=== PATIENT | female | born 1990 | race Caucasian/White ===

== ENCOUNTER 2016-05-10 21:09 | Emergency (ER) | payer SELFPAY ==
--- NOTE | 2016-05-10 21:15 | ER Document Report ---
ED Medical Screen (RME) - General Stated Complaint: CHEST PAIN Notes: Left-sided chest pain with 2 near-syncopal episodes since 8 PM. I greeted and performed a rapid initial assessment of this patient. Comprehensive ED assessment and evaluation of the patient, analysis of test results and completion of the medical decision making process will be conducted by additional ED providers. - Related Data Allergies/Adverse Reactions: No Known Allergies Allergy (Unverified 04/25/11 09:06) Past Medical History - Immunizations Hx Diphtheria, Pertussis, Tetanus Vaccination: No
[2016-05-10 21:22] VITALS: BP 124/83
--- NOTE | 2016-05-10 22:53 | EKG REPORT ---
SEVERITY:- BORDERLINE ECG - SINUS RHYTHM INFERIOR Q WAVES, PROBABLY NORMAL VARIATION : Confirmed by: Nadine Ferrera MD 10-May-2016 22:52:28
--- NOTE | 2016-05-10 23:51 | ER Document Report ---
ED Cardiac - General Chief Complaint: Chest Pain Stated Complaint: CHEST PAIN Time seen by provider: 23:49 Mode of Arrival: Medic Information source: Patient TRAVEL OUTSIDE OF THE [place] IN LAST 30 DAYS: No - HPI Patient complains to provider of: Chest pain, Chest tightness, Shortness of breath Was the onset of pain: Sudden Is the pain a: New problem Chest pain location: Pleuritic Quality of pain: Moderate, Tightness Severity now: Mild Severity at worst: Moderate Pain level currently: 1 Chest pain precipitating factors: Mental Exertion/Stress Cardiac risk factors: Smoker Positive cardiac history: No Associated symptoms: Shortness of breath, Syncope Exacerbated by: Denies Relieved by: Nothing Similar symptoms previously: Yes - approximately one month ago similar episode Recently seen / treated by doctor: No Notes: Patient is a 25-year-old female who presents to the emergency room complaining of chest pain with a syncopal episode that occurred just prior to arrival, states she was standing at the refrigerator when she felt a sharp stabbing chest pain, shortness of breath, and woke up on the floor, she had a second episode a few minutes later, where she collapsed to the ground but did not lose consciousness, she reports a sensation of chest tightness and shortness of breath, she is a smoker, has a history of a similar episode approximately one month ago but she did not seek out medical care for this, no recent traveling, no surgery, she does not take oral control, denies a chance of being - Related Data Allergies/Adverse Reactions: No Known Allergies Allergy (Unverified 04/25/11 09:06) Past Medical History - General Information source: Patient - Social History Smoking Status: Current Every Day Smoker Chew tobacco use (# tins/day): No Frequency of alcohol use: Occasional Drug Abuse: Marijuana Family History: Reviewed & Not Pertinent Patient has suicidal ideation: No Patient has homicidal ideation: No Renal/ Medical History: Denies: Hx Peritoneal Dialysis - Immunizations Hx Diphtheria, Pertussis, Tetanus Vaccination: No Review of Systems - Review of Systems Constitutional: No symptoms reported EENT: No symptoms reported Cardiovascular: See HPI Respiratory: See HPI Gastrointestinal: No symptoms reported Genitourinary: No symptoms reported Female Genitourinary: No symptoms reported Musculoskeletal: No symptoms reported Skin: No symptoms reported Hematologic/Lymphatic: No symptoms reported Neurological/Psychological: No symptoms reported -: Yes All other systems reviewed and negative Physical Exam - Vital signs Vitals: Temp Pulse Resp BP Pulse Ox 98.6 F 92 16 124/83 99 05/10/16 21:20 05/10/16 21:20 05/10/16 21:20 05/10/16 21:20 05/10/16 21:20 Interpretation: Normal - General General appearance: Appears well, Alert - HEENT Head: Normocephalic, Atraumatic Eyes: Normal Pupils: PERRL - Respiratory Respiratory status: No respiratory distress Chest status: Nontender Breath sounds: Normal Chest palpation: Normal - Cardiovascular Rhythm: Regular Heart sounds: Normal auscultation Murmur: No - Abdominal Inspection: Normal Distension: No distension Bowel sounds: Normal Tenderness: Nontender Organomegaly: No organomegaly - Back Back: Normal, Nontender - Extremities General upper extremity: Normal inspection, Nontender, Normal color, Normal ROM , Normal temperature General lower extremity: Normal inspection, Nontender, Normal color, Normal ROM , Normal temperature, Normal weight bearing. No: Natasha's sign - Neurological Neuro grossly intact: Yes Cognition: Normal Orientation: AAOx4 Emmanuel Coma Scale Eye Opening: Spontaneous Emmanuel Coma Scale Verbal: Oriented [place] Coma Scale Motor: Obeys Commands [place] Coma Scale Total: 15 Speech: Normal Motor strength normal: LUE, RUE, LLE, RLE Sensory: Normal - Psychological Associated symptoms: Normal affect, Tearful - Skin Skin Temperature: Warm Skin Moisture: Dry Skin Color: Normal Course - Re-evaluation Re-evalutation: 05/11/16 01:03 Patient's evaluation in the emergency room unremarkable, she is tearful on exam and admits to feeling stressed and anxious, symptoms likely related to anxiety, she was discharged with information for follow-up and advised to return if symptoms worsen, patient acknowledges understanding and agreement with this plan - Vital Signs Vital signs: Temp Pulse Resp BP Pulse Ox 98.6 F 92 16 124/83 99 05/10/16 21:20 05/10/16 21:20 05/10/16 21:20 05/10/16 21:20 05/10/16 21:20 - Laboratory Result Diagrams: 05/10/16 21:30 05/10/16 21:30 Laboratory results interpreted by me: 05/10/16 21:30 Carbon Dioxide 31 H Calcium 11.1 H Total Protein 8.8 H - Diagnostic Test Radiology reviewed: Image reviewed, Reports reviewed - EKG Interpretation by Me EKG shows normal: Sinus rhythm Rate: Normal Rhythm: NSR Additional EKG results interpreted by me: 05/10/16 23:51 Patient has evidence of inferior Q waves, otherwise normal sinus rhythm at a rate of 89, she does have flattened/slightly inverted T waves in lead 3 as well , no previous EKG to compare to Discharge - Discharge Clinical Impression: Chest pain Qualifiers: Chest pain type: unspecified Qualified Code(s): R07.9 - Chest pain, unspecified Condition: Stable Disposition: HOME, SELF-CARE Instructions: Chest Pain of Unclear Cause ([facility]), Anxiety ([facility]) Additional Instructions: Follow up with your primary care provider and a mental health professional in one to 2 days. Return to the emergency room immediately if symptoms worsen or any additional concerns. Forms: Smoking Cessation Education
[2016-05-10 23:55] LABS: ABSOLUTE EOSINOPHILS # (AUTO) 0.1 10^3/uL (0.0-0.6); ABSOLUTE LYMPHOCYTES (AUTO) 2.8 10^3/uL (0.5-4.7); ABSOLUTE MONOCYTES (AUTO) 0.7 10^3/uL (0.1-1.4); ABSOLUTE NEUT (AUTO) 4.8 10^3/uL (1.7-8.2); BASOPHILS % (AUTO) 0.6 % (0-2); EOSINOPHILS % (AUTO) 0.9 % (0-6); HEMATOCRIT 43.3 % (36.0-47.0); HEMOGLOBIN 14.3 g/dL (12.0-15.5); HGB HCT DIFFERENCE -0.4; LYMPHOCYTES % (AUTO) 33.5 % (13-45); MEAN CORPUSCULAR HEMOGLOBIN 29.1 pg (27.0-33.4); MEAN CORPUSCULAR VOLUME 88 fl (80-97); MONOCYTES % (AUTO) 7.9 % (3-13); RED BLOOD COUNT 4.91 10^6/uL (3.72-5.28); RED CELL DISTRIBUTION WIDTH 13.6 % (11.5-14.0); SEGMENTED NEUTROPHILS % (AUTO) 57.1 % (42-78); WHITE BLOOD COUNT 8.4 10^3/uL (4.0-10.5)
[2016-05-11 00:06] LABS: ALANINE AMINOTRANSFERASE 14 U/L (9-52); ALKALINE PHOSPHATASE 60 U/L (38-126); ANION GAP 14 (5-19); ASPARTATE AMINO TRANSFERASE 20 U/L (14-36); BILIRUBIN,TOTAL 0.9 mg/dL (0.2-1.3); BLOOD UREA NITROGEN 19 mg/dL (7-20); CALCIUM 11.1 mg/dL (8.4-10.2); CARBON DIOXIDE 31 mmol/L (22-30); CHLORIDE 98 mmol/L (98-107); CREATINE KINASE 69 U/L (30-135); CREATININE RESULT 0.84 mg/dL (0.52-1.25); GLUCOSE 88 mg/dL (75-110); POTASSIUM 4.3 mmol/L (3.6-5.0); SODIUM 143.3 mmol/L (137-145); TOTAL PROTEIN 8.8 g/dL (6.3-8.2)
== END 2016-05-11 01:20 | disposition home or self-care (01) ==
LOC: ER 21:09
DX: R07.9 Chest pain, unspecified (principal); R06.02 Shortness of breath; R55 Syncope and collapse; F17.200 Nicotine dependence, unspecified, uncomplicated
CPT/HCPCS: 36415; 71020; 71275; 80053; 82550; 82553; 82962; 84484; 84703; 85025; 93005; 93010; 99285

== ENCOUNTER 2016-12-05 11:57 | Observation (INO) | payer SELFPAY ==
--- NOTE | 2016-12-05 12:14 | ER Document Report ---
ED Oral Problem - General Chief Complaint: Toothache Stated Complaint: MOUTH PAIN/SWELLING Time Seen by Provider: 12/05/16 12:05 TRAVEL OUTSIDE OF THE [place] IN LAST 30 DAYS: No - Related Data Allergies/Adverse Reactions: No Known Allergies Allergy (Verified 12/05/16 12:03) Past Medical History - Social History Family History: Reviewed & Not Pertinent Pulmonary Medical History: Reports: Hx Asthma - childhood Renal/ Medical History: Denies: Hx Peritoneal Dialysis - Immunizations Hx Diphtheria, Pertussis, Tetanus Vaccination: No Physical Exam - Vital signs Vitals: Temp Pulse Resp BP Pulse Ox 100.3 F 100 22 H 129/78 H 100 12/05/16 12:03 12/05/16 12:03 12/05/16 12:03 12/05/16 12:03 12/05/16 12:03 Course - Vital Signs Vital signs: Temp Pulse Resp BP Pulse Ox 100.3 F 100 22 H 129/78 H 100 12/05/16 12:03 12/05/16 12:03 12/05/16 12:03 12/05/16 12:03 12/05/16 12:03
--- NOTE | 2016-12-05 12:28 | ER Document Report ---
ED Medical Screen (RME) - General Chief Complaint: Toothache Stated Complaint: MOUTH PAIN/SWELLING Time Seen by Provider: 12/05/16 12:05 Notes: Patient is a 18-year-old female presents emergency department complaining of chin swelling and pain that started on Wednesday. Patient states that it started as a pimple and her mom tried to pop it so she poked it with a needle. Patient states that since then it has been swelling in size and has not been draining. She also admits to pain on the inside of her gums but denies any drainage or foul odor. She states that her speech does feel muffled because she feels well and also admits to jaw pain pain with motion as well as pain into her neck as well. Patient states that she does have a history of cellulitis. Otherwise healthy female. TRAVEL OUTSIDE OF THE [place] IN LAST 30 DAYS: No - Related Data Allergies/Adverse Reactions: No Known Allergies Allergy (Verified 12/05/16 12:03) Past Medical History - Social History Chew tobacco use (# tins/day): No Frequency of alcohol use: Rare Drug Abuse: None Pulmonary Medical History: Reports: Hx Asthma - childhood Renal/ Medical History: Denies: Hx Peritoneal Dialysis Surgical Hx: Negative - Immunizations Hx Diphtheria, Pertussis, Tetanus Vaccination: No Review of Systems - Review of Systems Constitutional: No symptoms reported EENT: See HPI Cardiovascular: No symptoms reported Respiratory: No symptoms reported Skin: See HPI -: Yes All other systems reviewed and negative Physical Exam - Vital signs Vitals: Temp Pulse Resp BP Pulse Ox 100.3 F 100 22 H 129/78 H 100 12/05/16 12:03 12/05/16 12:03 12/05/16 12:03 12/05/16 12:03 12/05/16 12:03 - HEENT Mouth/Lips: Other - left lower jaw tenderness and swelling. No: Caries, Dental fracture Mucous membranes: Normal Pharynx: Other - speech midly muffled but patient has difficulty opening her jaw 2/2 pain. No: Peritonsillar abscess, Retropharyngeal abscess Neck: Other - soft tissue swelling and pain extening along the left jaw and into her neck with tenderness - Skin Skin irregularity: Abscess - cellulitis and abscess on her chin with tenderness , pocket commuicating within the interior of her lip with ourulent srainage and tenderness Location of irregularity: Face Course - Vital Signs Vital signs: Temp Pulse Resp BP Pulse Ox 100.3 F 100 22 H 129/78 H 100 12/05/16 12:03 12/05/16 12:03 12/05/16 12:03 12/05/16 12:03 12/05/16 12:03
[2016-12-05] MEDS ORDERED: CLINDAMYCIN 600 MG/D5W RTU 600 MG/50 ML RTUPB IV ONE (12:31)
--- NOTE | 2016-12-05 12:31 | ER Document Report ---
ED General - General Mode of Arrival: Medic Information source: Patient TRAVEL OUTSIDE OF THE [place] IN LAST 30 DAYS: No - HPI Associated symptoms: Other - see above <MANUELA CORONA - Last Filed: 12/05/16 12:38> <SAL CHERRY - Last Filed: 12/06/16 13:19> - General Chief Complaint: Toothache Stated Complaint: MOUTH PAIN/SWELLING Time Seen by Provider: 12/05/16 12:05 Notes: Patient is a 26 year old female who presents to the ED with complaints of an infected pimple on her chin with onset morning. Patient states her mother popped it and some white pus came out. Patient states she woke up this morning with entire face and neck swelling. Patient had a fever of 101 last night and this morning a temp of 100. Patient has no medical problems, is not on any daily medications and does not have a PCP. Patient states she does have some dental pain secondary to wisdom teeth coming in but denies a sore throat. (MANUELA CORONA) - Related Data Allergies/Adverse Reactions: No Known Allergies Allergy (Verified 12/05/16 12:03) Home Medications: Current Home Medications No Home Medications 12/05/16 [History] Past Medical History - General Information source: Patient - Social History Smoking Status: Current Every Day Smoker Chew tobacco use (# tins/day): No Frequency of alcohol use: Rare Drug Abuse: None Family History: Reviewed & Not Pertinent Pulmonary Medical History: Reports: Hx Asthma - childhood Renal/ Medical History: Denies: Hx Peritoneal Dialysis Surgical Hx: Negative - Immunizations Hx Diphtheria, Pertussis, Tetanus Vaccination: No <MANUELA CORONA - Last Filed: 12/05/16 12:38> Review of Systems - Review of Systems Constitutional: See HPI, Fever EENT: See HPI, Dental problem, Other - chin pain and swelling into neck. denies : Throat pain Cardiovascular: No symptoms reported Respiratory: No symptoms reported Gastrointestinal: No symptoms reported Genitourinary: No symptoms reported Female Genitourinary: No symptoms reported Musculoskeletal: No symptoms reported Skin: No symptoms reported Hematologic/Lymphatic: No symptoms reported Neurological/Psychological: No symptoms reported <MANUELA CORONA - Last Filed: 12/05/16 12:38> Physical Exam - General General appearance: Alert - HEENT Head: Normocephalic, Other - area on chin which appears to be a secondarily infected pimple with active erythema and swelling in the jaw down into the anterior left aspect of the neck. Eyes: Normal Pupils: PERRL Mouth/Lips: Other - no tongue swelling, no Ant's angina signs or swelling under the tongue, no trismus or drooling Pharynx: Normal. No: Uvular edema Neck: Normal, Other - no palpable masses in neck. No: Neck mass - Respiratory Respiratory status: No respiratory distress - Cardiovascular Rhythm: Regular - Abdominal Distension: No distension - Back Back: Normal - Extremities General upper extremity: Normal inspection, Normal strength General lower extremity: Normal inspection, Normal strength - Neurological Neuro grossly intact: Yes - Psychological Associated symptoms: Normal affect, Normal mood - Skin Skin Temperature: Warm Skin Moisture: Dry Skin Color: Normal Skin irregularity: other - see HEENT exam <MANUELA CORONA - Last Filed: 12/05/16 12:38> - Vital signs Vitals: Temp Pulse Resp BP Pulse Ox 100.3 F 100 22 H 129/78 H 100 12/05/16 12:03 12/05/16 12:03 12/05/16 12:03 12/05/16 12:03 12/05/16 12:03 Course - Laboratory Result Diagrams: 12/05/16 12:20 12/05/16 12:20 <MANUELA CORONA - Last Filed: 12/05/16 12:38> - Laboratory Result Diagrams: 12/05/16 12:20 12/05/16 12:20 <SAL CHERRY - Last Filed: 12/06/16 13:19> - Re-evaluation Re-evalutation: 12/05/16 15:16 Patient presents emergency department chief complaint of facial swelling. About 3-4 days ago patient had what appeared to be a pimple she poked it rather her mom poked it got white pus out of it. He then apparently stuck a needle in it. Today she woke up it was significantly swollen at her chin into her anterior neck without associated trismus stridor or drooling no respiratory distress she is febrile but not toxic CT scan did not show an abscess. Treated with IV antibiotics went to admit her observation according to Dr. ivey observation on the medical floor. (SAL CHERRY) - Vital Signs Vital signs: Temp Pulse Resp BP Pulse Ox 98.6 F 71 16 109/55 L 100 12/06/16 11:19 12/06/16 11:19 12/06/16 11:19 12/06/16 11:19 12/06/16 11:19 - Laboratory Laboratory results interpreted by me: 12/05/16 12/05/16 12:20 12:20 Seg Neutrophils % 78.6 H Lymphocytes % 12.4 L Glucose 143 H Direct Bilirubin 0.5 H Discharge <MANUELA CORONA - Last Filed: 12/05/16 12:38> - Discharge Admitting Provider: Hospitalist Unit Admitted: Medical Floor <SAL CHERRY - Last Filed: 12/06/16 13:19> - Discharge Clinical Impression: Facial cellulitis Condition: Stable Disposition: ADMITTED OBSERVATION Scribe Attestation: 12/05/16 15:16 I personally performed the services described in the documentation reviewed the documentation recorded by my scribe in my presence and it accurately and completely records my words and actions (SAL CHERRY) Scribe Documentation - Scribe Written by [place]:: xavier Mohr, 12/05/2016, 1238 acting as scribe for :: Terrance <MANUELA CORONA - Last Filed: 12/05/16 12:38>
[2016-12-05] MEDS ORDERED: TETANUS/DIPHTHERIA TOX-ADULT 0.5 ML SYR (>=7YO) IM ONE ×2 (12:33→13:00)
[2016-12-05] MEDS ORDERED: FENTANYL CITRATE INJ/PF 100 MCG/2 ML AMPUL IV ONE (12:34)
[2016-12-05 12:49] LABS: ABSOLUTE LYMPHOCYTES (AUTO) 1.3 10^3/uL (0.5-4.7); ABSOLUTE MONOCYTES (AUTO) 0.8 10^3/uL (0.1-1.4); ABSOLUTE NEUT (AUTO) 8.2 10^3/uL (1.7-8.2); BASOPHILS % (AUTO) 0.3 % (0-2); EOSINOPHILS % (AUTO) 0.5 % (0-6); HEMATOCRIT 38.4 % (36.0-47.0); HEMOGLOBIN 13.2 g/dL (12.0-15.5); HGB HCT DIFFERENCE 1.2; LYMPHOCYTES % (AUTO) 12.4 % (13-45); MEAN CORPUSCULAR HGB CONC 34.3 g/dL (32.0-36.0); MEAN CORPUSCULAR VOLUME 90 fl (80-97); MONOCYTES % (AUTO) 8.2 % (3-13); RED BLOOD COUNT 4.24 10^6/uL (3.72-5.28); RED CELL DISTRIBUTION WIDTH 13.4 % (11.5-14.0); SEGMENTED NEUTROPHILS % (AUTO) 78.6 % (42-78); WHITE BLOOD COUNT 10.4 10^3/uL (4.0-10.5)
[2016-12-05 13:05] LABS: ALANINE AMINOTRANSFERASE 26 U/L (9-52); ALKALINE PHOSPHATASE 74 U/L (38-126); ANION GAP 14 (5-19); ASPARTATE AMINO TRANSFERASE 16 U/L (14-36); BLOOD UREA NITROGEN 7 mg/dL (7-20); CALCIUM 9.9 mg/dL (8.4-10.2); CARBON DIOXIDE 25 mmol/L (22-30); CHLORIDE 98 mmol/L (98-107); CREATININE RESULT 0.65 mg/dL (0.52-1.25); GLUCOSE 143 mg/dL (75-110); POTASSIUM 4.1 mmol/L (3.6-5.0); SODIUM 137.1 mmol/L (137-145)
[2016-12-05 13:06] LABS: BILIRUBIN,DIRECT 0.5 mg/dL (0.0-0.4); TOTAL PROTEIN 7.6 g/dL (6.3-8.2)
--- NOTE | 2016-12-05 14:34 | RADIOLOGY REPORT (SQ) ---
EXAM DESCRIPTION: CT SOFT TISSUE NECK WITH COMPLETED DATE/TIME: 12/05/2016 1:59 pm REASON FOR STUDY: abscess jaw COMPARISON: None. TECHNIQUE: Post IV contrasted scanning from skull base through lung apices with review of bone, soft tissue and lung windows. Reconstructed coronal and sagittal MPR images reviewed. All images stored on PACS. All CT scanners at this facility use dose modulation, iterative reconstruction, and/or weight based d osing when appropriate to reduce radiation dose to as low as reasonably achievable (ALARA). [facility]: Dose Right [facility]: CareDose [facility]: Dose Right [facility]: Teradose 4D [facility]: Ocean Seed CONTRAST TYPE AND DOSE: contrast/concentration: Isovue 370.00 mg/ml; Total Contrast Delivered: 75.0 ml; Total Saline Delivered: 55.0 ml RENAL FUNCTION: GFR > 60. RADIATION DOSE: Up-to-date CT equipment and radiation dose reduction techniques were employed. CTDIv ol: 12.7 mGy. DLP: 362 mGy-cm. . LIMITATIONS: None. FINDINGS: SKULL BASE: Intact. MAJOR SALIVARY GLANDS: No solid or cystic masses. No inflammatory changes. LYMPHADENOPATHY: Enlarged left submandibular nodes, maximum 1.5 cm in diameter. MUCOSAL MASSES OR ASYMMETRY: No mucosal masses or asymmetry. LARYNX/CORDS: No abnormal findings. VASCULAR STRUCTURES: The major vessels are patent. LUNG APICES: Clear. BONES: Intact. THYROID: Normal size. No masses. PARANASAL SINUSES: Clear. OTHER: Stranding of the fat in the subcutaneous tissues of the submandibular space. No organized flu id collection. IMPRESSION: Cellulitis. Submandibular adenopathy. No abscess. TECHNICAL DOCUMENTATION: JOB ID: [id number] Quality ID # [id number]: Final reports with documentation of one or more dose reduction techniques (e.g., Au tomated exposure control, adjustment of the mA and/or kV according to patient size, use of iterative reconstruction technique) 2010 [employer]- All Rights Reserved
[2016-12-05] MEDS ORDERED: ONDANSETRON HCL INJ/PF 4 MG/2 ML SDV IV PRN (15:22)
[2016-12-05] MEDS: NORMAL SALINE 1000 ML 1,000 ML IV PRN (16:00)
--- NOTE | 2016-12-05 16:25 | PDOC H&P ---
History of Present Illness Admission Date/PCP: No PCP Patient complains of: Pain in the chin History of Present Illness: RJ ALAS is a 26 year old female sending after 3-4 history of having a pimple on the face which her mom squeezed. Patient says after he squeezed it became more tender and red and then she noticed swelling in her chin under her chin and it has been very painful to her. Patient states she has not been able to eat. Patient states that she has been having fevers and chills at home. Patient states she has never had anything like this before. In the ED patient underwent a soft tissue CT scan which showed cellulitis and submandibular adenopathy no abscess. Patient was given a dose of clindamycin and fentanyl for pain. Hospitalist service was called to bring patient in for observation and antibiotics and pain management. Past Medical History Cardiac Medical History: Reports: None Pulmonary Medical History: Reports: Asthma - childhood Social History Smoking Status: Current Every Day Smoker Drugs: None - Advance Directive Resuscitation Status: Full Code Family History Family History: None, Reviewed & Not Pertinent Parental Family History Reviewed: Yes Children Family History Reviewed: Yes Sibling(s) Family History Reviewed.: Yes Medication/Allergy Home Medications: No Home Medications 12/05/16 Allergies/Adverse Reactions: No Known Allergies Allergy (Verified 12/05/16 12:03) Physical Exam Vital Signs: Temp Pulse Resp BP Pulse Ox 99.9 F 88 16 137/81 H 100 12/05/16 15:29 12/05/16 15:29 12/05/16 15:29 12/05/16 15:29 12/05/16 15:29 Intake & Output 12/04/16 12/05/16 12/06/16 06:59 06:59 06:59 Weight 75.3 kg General appearance: PRESENT: mild distress Head exam: PRESENT: normocephalic Eye exam: PRESENT: EOMI Teeth exam: PRESENT: other - Braces Neck exam: PRESENT: lymphadenopathy Respiratory exam: PRESENT: clear to auscultation kaylee Cardiovascular exam: PRESENT: RRR GI/Abdominal exam: PRESENT: normal bowel sounds, soft Rectal exam: PRESENT: deferred Extremities exam: PRESENT: full ROM Musculoskeletal exam: PRESENT: ambulatory Neurological exam: PRESENT: alert, awake, oriented to place, oriented to time Psychiatric exam: PRESENT: normal mood Skin exam: PRESENT: other - Erythema of the chin with induration and tenderness to palpation there is a punctum with some drainage. Results Laboratory Results: 12/05/16 12:20 12/05/16 12:20 12/05/16 12/05/16 12:20 12:20 WBC 10.4 RBC 4.24 Hgb 13.2 Hct 38.4 MCV 90 MCH 31.0 MCHC 34.3 RDW 13.4 Plt Count 155 Seg Neutrophils % 78.6 H Lymphocytes % 12.4 L Monocytes % 8.2 Eosinophils % 0.5 Basophils % 0.3 Absolute Neutrophils 8.2 Absolute Lymphocytes 1.3 Absolute Monocytes 0.8 Absolute Eosinophils 0.0 Absolute Basophils 0.0 Sodium 137.1 Potassium 4.1 Chloride 98 Carbon Dioxide 25 Anion Gap 14 BUN 7 Creatinine 0.65 Est GFR ( Amer) > 60 Est GFR (Non-Af Amer) > 60 Glucose 143 H Calcium 9.9 Total Bilirubin 1.0 AST 16 ALT 26 Alkaline Phosphatase 74 Total Protein 7.6 Albumin 4.0 Impressions: Soft Tissue Neck CT 12/05/16 12:12 IMPRESSION: Cellulitis. Submandibular adenopathy. No abscess. Assessment & Plan - Diagnosis (1) Facial cellulitis Is this a current diagnosis for this admission?: Yes Plan: Patient being brought in for observation. Continue clindamycin 900 mg IV q. 8 for facial cellulitis. Will do MRSA swab. Toradol as needed for pain as well as Tylenol. Will start a liquid diet as patient states it hurts to chew. Will monitor for fever. Will monitor for improvement. Note that CT scan was done which was negative for abscess but did show cellulitis and adenopathy. (2) Tobacco abuse Plan: Will place nicotine patch and counseled patient on smoking cessation - Time Time Spent: 30 to 50 Minutes Smoking Cessation Education: 3 to 10 minutes Medications reviewed and adjusted accordingly: Yes Anticipated discharge: Home Within: within 48 hours
[2016-12-05] MEDS: KETOROLAC TROMETHAMINE INJ/PF 30 MG/1 ML SDV IV PRN (16:48)
[2016-12-05] MEDS ORDERED: NICOTINE 21 MG/24 HR PATCH.TD24 TD PRN (19:59)
[2016-12-05] MEDS: CLINDAMYCIN 900 MG/D5W RTU 50 ML IV SCH (21:18)
[2016-12-06] MEDS: KETOROLAC TROMETHAMINE INJ/PF 30 MG/1 ML SDV IV PRN ×2 (00:38→08:46)
[2016-12-06] MEDS: NORMAL SALINE 1000 ML 1,000 ML IV PRN ×2 (02:11→14:10)
[2016-12-06] MEDS: CLINDAMYCIN 900 MG/D5W RTU 50 ML IV SCH ×2 (05:59→14:10)
[2016-12-06] MEDS ORDERED: LACTOBACILLUS ACIDOPHILUS 250 MG TAB PO SCH (10:00)
--- NOTE | 2016-12-06 10:38 | PDOC PROGRESS REPORT ---
Subjective Progress Note for:: 12/06/16 Subjective:: Lying in bed states that she is more comfortable. Patient states that her face does not hurt as much as she is still having difficulty chewing because of the pain. Encourage patient to wash her face with soap and water and to place warm compress on the chin. Physical Exam Vital Signs: Temp Pulse Resp BP Pulse Ox 98.5 F 72 16 118/65 100 12/06/16 07:39 12/06/16 07:39 12/06/16 07:39 12/06/16 07:39 12/06/16 07:39 Intake & Output 12/05/16 12/06/16 12/07/16 06:59 06:59 06:59 Intake Total 1725 Balance 1725 Weight 74.7 kg General appearance: PRESENT: no acute distress Eye exam: PRESENT: EOMI Mouth exam: PRESENT: moist Neck exam: PRESENT: full ROM Respiratory exam: PRESENT: clear to auscultation kaylee Cardiovascular exam: PRESENT: RRR GI/Abdominal exam: PRESENT: normal bowel sounds, soft Rectal exam: PRESENT: deferred Extremities exam: PRESENT: full ROM Musculoskeletal exam: PRESENT: full ROM Neurological exam: PRESENT: alert, awake, CN II-XII grossly intact Psychiatric exam: PRESENT: normal mood Skin exam: PRESENT: other - Erythema of the chin improved drainage coming from the punctum. It has softened up. Results Impressions: Soft Tissue Neck CT 12/05/16 12:12 IMPRESSION: Cellulitis. Submandibular adenopathy. No abscess. Assessment & Plan - Diagnosis (1) Facial cellulitis Is this a current diagnosis for this admission?: Yes Plan: Continue clindamycin 900 mg IV q. 8 for facial cellulitis. Wound culture is consistent with possible MRSA as is growing gram-positive cocci in clusters. We will continue Toradol as it is helping with the pain and swelling as needed for pain as well as Tylenol. Will start a liquid diet as patient states it hurts to chew. She has been afebrile. Will monitor for improvement. Note that CT scan was done which was negative for abscess but did show cellulitis and adenopathy. Start patient on probiotic while she is on the high dose of clindamycin. Encourage patient to wash face with soap and water and use warm compresses to the area as much as possible. (2) Tobacco abuse Is this a current diagnosis for this admission?: Yes Plan: Continue nicotine patch and counseled patient on smoking cessation - Time Time Spent with patient: Less than 15 minutes Anticipated discharge: Home Within: within 24 hours
[2016-12-06 16:35] VITALS: BP 106/60
--- NOTE | 2016-12-06 17:17 | PDOC DISCHARGE SUMMARY ---
General - Admit/Disc Date/PCP Admission Date/Primary Care Provider: 12/05/16 15:23 Discharge Date: 12/06/16 - Discharge Diagnosis (1) Facial cellulitis Is this a current diagnosis for this admission?: Yes Summary: Patient had cellulitis of the chin after she burst a pimple on her face. Patient was given clindamycin and show significant improvement. Patient was only here under observation and has for several doses of clindamycin. Patient wound culture of her chin is growing what seems to be MRSA patient is asking if she can go home. She was also given Toradol as needed for her pain. Warm compress was applied to the face and patient was asked to keep her face clean. (2) Tobacco abuse Is this a current diagnosis for this admission?: Yes Summary: She was given a nicotine patch and counseled on smoking cessation - Additional Information Resuscitation Status: Full Code Discharge Diet: As Tolerated Discharge Activity: Activity As Tolerated Home Medications: Clindamycin HCl 300 mg PO Q6 10 Days #40 capsule 12/06/16 Ibuprofen [Motrin 800 mg Tablet] 800 mg PO Q8H PRN #30 tab 12/06/16 History of Present Illness History of Present Illness: RJ ALAS is a 26 year old female sending after 3-4 history of having a pimple on the face which her mom squeezed. Patient says after he squeezed it became more tender and red and then she noticed swelling in her chin under her chin and it has been very painful to her. Patient states she has not been able to eat. Patient states that she has been having fevers and chills at home. Patient states she has never had anything like this before. In the ED patient underwent a soft tissue CT scan which showed cellulitis and submandibular adenopathy no abscess. Patient was given a dose of clindamycin and fentanyl for pain. Hospitalist service was called to bring patient in for observation and antibiotics and pain management. Hospital Course Hospital Course: Patient was brought in under observation status. Patient was given a dose of clindamycin while in the ED and received several more doses while she was in the hospital. Patient face did show significant improvement along with the tenderness. There is still erythema and there was some drainage coming from the face. Patient wound cultures growing gram-positive cocci in clusters which is most consistent with MRSA. Patient should have adequate adequate coverage with clindamycin however this is not patient will be contacted and antibiotic will be changed. Patient was receiving Toradol for pain which she stated helped. Patient was asked to keep place face clean with soap and water and to apply warm compress to the chin area. Patient was asked to no longer squeeze the chin. She does have a tobacco use history. Patient had a continue patch placed and was counseled on smoking cessation. Physical Exam Vital Signs: Temp Pulse Resp BP Pulse Ox 98.6 F 71 16 109/55 L 100 12/06/16 11:19 12/06/16 11:19 12/06/16 11:19 12/06/16 11:19 12/06/16 11:19 Intake & Output 12/05/16 12/06/16 12/07/16 06:59 06:59 06:59 Intake Total 1725 Balance 1725 Weight 74.7 kg General appearance: PRESENT: no acute distress Head exam: PRESENT: normocephalic Eye exam: PRESENT: EOMI Mouth exam: PRESENT: moist Neck exam: PRESENT: full ROM Respiratory exam: PRESENT: clear to auscultation kaylee Cardiovascular exam: PRESENT: RRR GI/Abdominal exam: PRESENT: normal bowel sounds, soft Rectal exam: PRESENT: deferred Extremities exam: PRESENT: full ROM Musculoskeletal exam: PRESENT: full ROM Neurological exam: PRESENT: CN II-XII grossly intact Psychiatric exam: PRESENT: normal mood Skin exam: PRESENT: other - Erythema of the chin significantly improve. The chin area is no longer firm. Is a punctum with purulent drainage. Results Impressions: Soft Tissue Neck CT 12/05/16 12:12 IMPRESSION: Cellulitis. Submandibular adenopathy. No abscess. Qualifiers PATEINT BEING DISCHARGED WITH ANY OF THE FOLLOWING DIAGNOSIS?: No VTE patient discharged on overlapping Therapy?: No Plan Discharge Plan: Patient is being discharged on clindamycin 300 mg every 6 hours for 10 days facial cellulitis. Patient is also being discharged on Motrin 800 mg 3 times daily as needed for pain quantity 30. Patient advised to keep her face clean and to apply warm compress to her chin and allow the area to drain. Patient should follow-up at the free clinic within a week. Patient does not have a PCP. Time Spent: Less than 30 Minutes
== END 2016-12-06 16:46 | disposition home or self-care (01) ==
LOC: ER 11:57 → EH 15:23 → UNDOADMOB 15:33 → 2N 16:37
PROC: 3E0234Z Introduction of Serum, Toxoid and Vaccine into Muscle, Percutaneous Approach (ICD-10-PCS; principal; 2016-12-05)
PROC: HZ31ZZZ Individual Counseling for Substance Abuse Treatment, Behavioral (ICD-10-PCS; 2016-12-05)
DX: L03.211 Cellulitis of face (principal); B96.89 Other specified bacterial agents as the cause of diseases classified elsewhere; R59.0 Localized enlarged lymph nodes; F17.200 Nicotine dependence, unspecified, uncomplicated; K08.89 Other specified disorders of teeth and supporting structures
CPT/HCPCS: 99285; 90471; 96375; 96365; 36415; 87040; 87070; 87205; 84702; 85025; 87075; 87077; 80053; 87186; 70491; 90714; 99406; G0378 ×3; J3010; J1885 ×2; J7030 ×2

== ENCOUNTER 2018-06-19 21:56 | Emergency (ER) | payer SELFPAY ==
--- NOTE | 2018-06-20 00:42 | RADIOLOGY REPORT (SQ) ---
EXAM DESCRIPTION: XR SHOULDER 2 OR MORE VIEWS COMPLETED DATE/TME: 06/19/2018 23:33 CLINICAL HISTORY: 27 years, Female, injury with pain COMPARISON: None. NUMBER OF VIEWS: 3 TECHNIQUE: 3 view right shoulder LIMITATIONS: None. FINDINGS: Negative for acute fracture. Anterior inferior shoulder dislocation. The acromial clavicular joint is preserved. IMPRESSION: Anterior inferior shoulder dislocation copyright 2010 [employer]- All Rights Reserved
[2018-06-20] MEDS ORDERED: PROPOFOL INJ 200 MG/20 ML VIAL IV ONE ×3 (01:00→03:01)
[2018-06-20] MEDS ORDERED: MIDAZOLAM 2 MG/2 ML INJ IM ONE (01:56)
[2018-06-20] MEDS ORDERED: KETOROLAC TROMETHAMINE INJ/PF 30 MG/1 ML SDV IV ONE (02:58)
--- NOTE | 2018-06-20 02:58 | ER Document Report ---
ED General - General Chief Complaint: Arm Injury Stated Complaint: RIGHT ARM INJURY Time Seen by Provider: 06/20/18 00:41 Notes: Patient is a 27-year-old female without chronic medical problems, has had a right shoulder dislocation in the past, states that she has had 2 days of neck pain, shoulder pain and bicep area pain after she was moving a bed and heard a pop. Patient notes the pain as a throbbing, constant, aching pain. Worsened by any attempt at using arm. Has never required medical evaluation for similar problem the past. Has not seen her primary care doctor regarding today's concerns. Denies associated weakness, numbness or discoloration of the hand. TRAVEL OUTSIDE OF THE [place] IN LAST 30 DAYS: No - Related Data Allergies/Adverse Reactions: No Known Allergies Allergy (Verified 12/05/16 12:03) Past Medical History - General Information source: Patient - Social History Smoking Status: Current Every Day Smoker Chew tobacco use (# tins/day): No Frequency of alcohol use: None Drug Abuse: None Lives with: Family Family History: Reviewed & Not Pertinent Patient has suicidal ideation: No Patient has homicidal ideation: No Pulmonary Medical History: Reports: Hx Asthma - childhood Renal/ Medical History: Denies: Hx Peritoneal Dialysis - Immunizations Hx Diphtheria, Pertussis, Tetanus Vaccination: No Review of Systems - Review of Systems Notes: Constitutional: Negative for fever. HENT: Negative for sore throat. Eyes: Negative for visual changes. Cardiovascular: Negative for chest pain. Respiratory: Negative for shortness of breath. Gastrointestinal: Negative for abdominal pain, vomiting or diarrhea. Genitourinary: Negative for dysuria. Musculoskeletal: Positive right shoulder pain, right neck pain, right upper extremity pain Skin: Negative for rash. Neurological: Negative for headaches, weakness or numbness. 10 point ROS negative except as marked above and in HPI. Physical Exam - Vital signs Vitals: Temp Pulse Resp BP Pulse Ox 99.0 F 93 31 H 132/69 H 100 06/19/18 22:47 06/19/18 22:47 06/19/18 22:47 06/19/18 22:47 06/19/18 22:47 Interpretation: Tachycardic Notes: PHYSICAL EXAMINATION: GENERAL: Well-appearing, well-nourished and in no acute distress. HEAD: Atraumatic, normocephalic. EYES: Pupils equal round and reactive to light, extraocular movements intact, sclera anicteric, conjunctiva are normal. ENT: nares patent, oropharynx clear without exudates. Moist mucous membranes. NECK: Normal range of motion, supple without lymphadenopathy LUNGS: Breath sounds clear to auscultation bilaterally and equal. No wheezes rales or rhonchi. HEART: Regular rate and rhythm without murmurs, capillary refill less than 1 second in all digits of the right hand. ABDOMEN: Soft, nontender, normoactive bowel sounds. No guarding, no rebound. No masses appreciated. EXTREMITIES: Mild swelling of the right shoulder, appears to have an anterior shoulder dislocation on the right. No other extremity findings. NEUROLOGICAL: No focal neurological deficits. Moves all extremities spontaneously and on command. PSYCH: Normal mood, normal affect. SKIN: Warm, Dry, normal turgor, no rashes or lesions noted. Course - Vital Signs Vital signs: Temp Pulse Resp BP Pulse Ox 99.0 F 83 21 H 128/80 H 98 06/19/18 22:47 06/20/18 02:45 06/20/18 02:45 06/20/18 02:45 06/20/18 02:45 Procedures - Conscious Sedation Conscious sedation Time started: 02:48 Time completed: 02:55 Consent obtained: Yes Indication: Right shoulder reduction Prior complications: Procedural sedation Normal healthy pt.: P1. - ASA Classification Airway Evaluation: Normal anatomy Mallampati Classification: Class 1 Used during procedure: Suction available, IV access obtained, Pulse ox on pt., public speaking teacher on pt. Medications administered: Diprivan Reversal agents: None I personally performed/intraservice time: Sedation, Procedure, 30 min or less Complications: No - Joint Reduction/Fracture Care Right Shoulder Consent obtained: Yes Conscious sedation: Yes Pre-procedure NV exam: Yes Fracture: Other Manipulation comment: Downward traction, external rotation Post-procedure NV exam: Yes Post-reduction x-ray: Joint reduced Reduction attempts: 1 Complications: No Discharge - Discharge Clinical Impression: Neck pain on right side Dislocation of right shoulder joint Qualifiers: Encounter type: initial encounter Qualified Code(s): S43.004A - Unspecified dislocation of right shoulder joint, initial encounter Condition: Good Disposition: HOME, SELF-CARE Additional Instructions: Your shoulder was dislocated today. This was reduced. Please wear the sling as needed for comfort. Follow-up with orthopedic surgery if you have recurrent shoulder dislocations. You should continue to take anti-inflammatories such as ibuprofen 600 mg every 6 hours for pain. Continue to apply ice to the area is much your able. Please return immediately if you develop weakness, numbness, spreading redness from the area, or any other symptoms that are concerning to you.
--- NOTE | 2018-06-20 03:13 | RADIOLOGY REPORT (SQ) ---
EXAM DESCRIPTION: XR SHOULDER 1 VIEW COMPLETED DATE/TME: 06/20/2018 02:54 CLINICAL HISTORY: 27 years, Female, postreduction COMPARISON: Prior right shoulder from today's date NUMBER OF VIEWS: 1 TECHNIQUE: AP view right shoulder LIMITATIONS: None. FINDINGS: Interval reduction of the previously noted dislocation. No discrete fracture IMPRESSION: Interval reduction. No discrete fracture copyright 2010 [employer]- All Rights Reserved
[2018-06-20 03:38] VITALS: BP 146/94
== END 2018-06-20 03:47 | disposition home or self-care (01) ==
LOC: ER 21:56
DX: S43.004A Unspecified dislocation of right shoulder joint, initial encounter (principal); M54.2 Cervicalgia; X50.0XXA Overexertion from strenuous movement or load, initial encounter; F17.200 Nicotine dependence, unspecified, uncomplicated
CPT/HCPCS: 99283; 99152; 96374; 73020; 73030; 23650; L3650; J2250; J1885; J2704

== ENCOUNTER 2019-02-07 18:25 | Emergency (ER) | payer SELFPAY ==
[2019-02-07 18:35] VITALS: BP 127/76
--- NOTE | 2019-02-07 18:56 | ER Document Report ---
ED Medical Screen (RME) - General Chief Complaint: Fall Injury Stated Complaint: RIGHT LEG PAIN/FALL Time Seen by Provider: 02/07/19 18:49 Mode of Arrival: Wheelchair Information source: Patient Notes: Patient presents to the emergency department with complaints of right femur/thigh pain. Patient reports she fell tripped over her pitbull puppy 4 days ago and now it hurts. Reports she cannot walk. Patient has a cane with her and reports she uses that when she can walk. Denies past medical history of injury. Patient has tight pants on unable to visualize the thigh x-ray ordered. I have greeted and performed a rapid initial assessment of this patient. A comprehensive ED assessment and evaluation of the patient, analysis of test results and completion of the medical decision making process will be conducted by additional ED providers. Dictation of this chart was performed using voice recognition software; therefore, there may be some unintended grammatical errors. TRAVEL OUTSIDE OF THE [place] IN LAST 30 DAYS: No - Related Data Allergies/Adverse Reactions: No Known Allergies Allergy (Verified 12/05/16 12:03) Past Medical History Pulmonary Medical History: Reports: Hx Asthma - childhood Renal/ Medical History: Denies: Hx Peritoneal Dialysis - Immunizations Hx Diphtheria, Pertussis, Tetanus Vaccination: No Physical Exam - Vital signs Vitals: Temp Pulse Resp BP Pulse Ox 98.5 F 88 16 127/76 H 100 02/07/19 18:33 02/07/19 18:33 02/07/19 18:33 02/07/19 18:33 02/07/19 18:33 Course - Vital Signs Vital signs: Temp Pulse Resp BP Pulse Ox 98.5 F 88 16 127/76 H 100 02/07/19 18:33 02/07/19 18:33 02/07/19 18:33 02/07/19 18:33 02/07/19 18:33
--- NOTE | 2019-02-07 19:37 | RADIOLOGY REPORT (SQ) ---
EXAM DESCRIPTION: FEMUR RIGHT COMPLETED DATE/TIME: 02/07/2019 7:26 pm REASON FOR STUDY: pain, fell COMPARISON: None. NUMBER OF VIEWS: Two views. TECHNIQUE: Two radiographic images acquired of the right femur to include hip and knee in at least o ne projection. LIMITATIONS: None. FINDINGS: MINERALIZATION: Normal. BONES: No acute fracture. No worrisome bone lesions. SOFT TISSUES: No obvious swelling or foreign body. OTHER: No other significant finding. IMPRESSION: NEGATIVE STUDY OF THE RIGHT FEMUR. NO RADIOGRAPHIC EVIDENCE OF ACUTE INJURY. TECHNICAL DOCUMENTATION: JOB ID: [id number] [employer]- All Rights Reserved Reading location - IP/workstation name: [email or web address]
[2019-02-07] MEDS ORDERED: DEXAMETHASONE SOD PHOS INJ 10 MG/1 ML VIAL IM ONE (20:35)
--- NOTE | 2019-02-07 20:39 | ER Document Report ---
HPI - HPI Time Seen by Provider: 02/07/19 18:49 Pain Level: 4 Context: Patient is a 28-year-old female who presents to the emergency department with a chief complaint of right lateral thigh pain. 4 days ago she was walking her puppy and she tripped over the leash and landed on her right side. She states that she had pain at the time, but the pain has gotten progressively worse. Patient is currently on Subutex and states that she has been taking BC powders. Her last dose was about an hour ago. - ROS Systems Reviewed and Negative: Yes All other systems reviewed and negative - REPRODUCTIVE Reproductive: DENIES: : - MUSCULOSKELETAL Musculoskeletal: REPORTS: Extremity pain - Rt Lateral thigh, Swelling - Rt lateral thigh - DERM Skin Color: Normal Skin Problems: None Past Medical History - General Information source: Patient - Social History Smoking Status: Current Every Day Smoker Frequency of alcohol use: None Drug Abuse: None Family History: Reviewed & Not Pertinent Patient has suicidal ideation: No Patient has homicidal ideation: No Pulmonary Medical History: Reports: Hx Asthma - childhood Renal/ Medical History: Denies: Hx Peritoneal Dialysis - Immunizations Hx Diphtheria, Pertussis, Tetanus Vaccination: No Vertical Provider Document - CONSTITUTIONAL Notes: PHYSICAL EXAMINATION: GENERAL: Appears well, healthy, well-nourished, no acute distress. HEAD: Normocephalic, atraumatic. EYES: PERRL, conjunctiva normal, sclera nonicteric EXTREMITIES: Normal strength and range of motion, no pitting or edema. No cyanosis. Tenderness to right lateral thigh NEUROLOGICAL: Moves all extremities upon command. Strength 5/5 in all extremities. VASCULAR: Dorsalis pedis and posterior tibial pulses 2+. Capillary refill less than 3 seconds PSYCH: Normal mood, normal affect. SKIN: Warm, dry. No rash, lesions, ulcerations noted. Normal skin turgor. - INFECTION CONTROL TRAVEL OUTSIDE OF THE [place] IN LAST 30 DAYS: No Course - Re-evaluation Re-evalutation: 02/07/19 Patient femur x-ray ordered in triage is negative for any acute findings. I am cautious to give the patient any narcotic pain medication especially to go home with and she is currently on Subutex. Patient received Decadron here in the emergency department. I have advised her to follow-up with her primary care provider. She has been provided crutches. I have a very low suspicion for any life-threatening etiology at this time. Very low suspicion for DVT. Follow-up precautions were given. Verbal discharge instructions were given to the patient. They verbalized understanding. They are stable for discharge. - Vital Signs Vital signs: Temp Pulse Resp BP Pulse Ox 98.5 F 88 16 127/76 H 100 02/07/19 18:33 02/07/19 18:33 02/07/19 18:33 02/07/19 18:33 02/07/19 18:33 Discharge - Discharge Clinical Impression: Right thigh pain Condition: Stable Disposition: HOME, SELF-CARE Additional Instructions: You were seen today in the emergency department for right thigh pain. Your x- ray was normal. You were given a dose of steroids here in the emergency department to help with inflammation. You can take ibuprofen 600 mg every 6 hours or naproxen 500 mg twice a day to help with inflammation. If you take these, please do not take BC powders. Please also take acetaminophen 1000 mg every 6 hours for your pain. Please follow-up with 1 of the free clinics below to see if you qualify. You are also being sent home with crutches. Use them to help you get around for the next couple of days. Forms: Return to Work Referrals: [facility] [Provider Group] - Follow up in 3-5 days [facility] [Provider Group] - Follow up in 3-5 days
== END 2019-02-07 20:49 | disposition home or self-care (01) ==
LOC: ER 18:25
DX: M79.651 Pain in right thigh (principal); F17.200 Nicotine dependence, unspecified, uncomplicated; W01.0XXA Fall on same level from slipping, tripping and stumbling without subsequent striking against object, initial encounter
CPT/HCPCS: 99283; 96374; 73552; J1100

== ENCOUNTER 2019-05-11 19:12 | Emergency (ER) | payer SELFPAY ==
[2019-05-11 19:21] VITALS: BP 138/80
== END 2019-05-11 22:00 | disposition left against medical advice (07) ==
LOC: ER 19:12
DX: Z53.21 Procedure and treatment not carried out due to patient leaving prior to being seen by health care provider (principal)